=== PATIENT | female | born 1970 | race Caucasian/White ===

== ENCOUNTER 2019-11-18 13:54 | Inpatient (IN) ==
[2019-11-18] MEDS ORDERED: CeFAZolin Syr 3,000MG/30 ML 3,000 MG/30 ML SYRINGE IVPB ONE (14:14)
[2019-11-18] MEDS ORDERED: Ringers Solution, Lactated 1,000 ML IVC SCH ×2 (14:15→21:06)
[2019-11-18] MEDS ORDERED: Acetaminophen IV 1,000 MG/100 ML INFUS..BTL IVPB ONE (14:57)
[2019-11-18] MEDS ORDERED: Ondansetron 4 MG/2 ML VIAL IVP PRN ×2 (15:02→21:06)
[2019-11-18] MEDS ORDERED: *HR* Midazolam HCl 2 MG/2 ML VIAL ONE ×2 (16:53→17:17)
[2019-11-18] MEDS ORDERED: ROPIVACAINE/PF/NS 0.25% 1 EACH SYRINGE INTRAART ONE (16:54)
[2019-11-18] MEDS ORDERED: Ropivacaine/PF 0.5% 30 ML VIAL ONE (16:54)
[2019-11-18] MEDS ORDERED: *HR* FentaNYL (PF) 100 MCG/2 ML VIAL ONE (16:54)
[2019-11-18] MEDS ORDERED: Povidone-Iodine 45 ML, Sodium Chloride IRRigation 1,000 ML IR ONE (17:45)
[2019-11-18] MEDS ORDERED: *HR* Enoxaparin 30 MG/0.3 ML SYRINGE SQ SCH (18:00)
[2019-11-18] MEDS ORDERED: Vancomycin 1,000 MG VIAL ONE (18:12)
[2019-11-18] MEDS ORDERED: Ethanol\\Acetic Acid\\Na Ace\\Ben 1,000 ML IRRIG.SOLN IR ONE (18:12)
[2019-11-18] MEDS ORDERED: *HR* Propofol 200 MG/20 ML VIAL IVP ONE (18:14)
[2019-11-18] MEDS ORDERED: *HR* Succinylcholine 200 MG/10 ML VIAL IVP ONE (18:14)
[2019-11-18] MEDS ORDERED: Lidocaine HCL 4 ML Topical Solution (Laryng-O-Jet Kit Sterile Pak) TP ONE (18:15)
[2019-11-18] MEDS ORDERED: Lidocaine -MPF 2% 2 ML VIAL ONE (18:15)
[2019-11-18] MEDS ORDERED: Acetaminophen IV 1,000 MG/100 ML INFUS..BTL ONE (18:34)
[2019-11-18] MEDS ORDERED: Ondansetron 4 MG/2 ML VIAL ONE (18:35)
[2019-11-18] MEDS ORDERED: Dexamethasone 4 MG/ML VIAL ONE (18:35)
[2019-11-18] MEDS ORDERED: EPHEDrine 50 MG/ML VIAL ONE (19:03)
[2019-11-18] MEDS: *HR* FentaNYL (PF) 100 MCG/2 ML VIAL IVP PRN ×2 (19:43→20:02)
[2019-11-18] MEDS ORDERED: *HR* OxyCODONE Immed Rel 5 MG TABLET PO ONE (20:06)
[2019-11-18 20:45] LABS: Hematocrit 37.3 % (35.3-44.9); Hemoglobin 12.2 g/dL (11.5-15.4)
[2019-11-18] MEDS ORDERED: Baclofen 10 MG TABLET PO PRN (21:06)
[2019-11-18] MEDS ORDERED: Acetaminophen/Butalbital/CaffeineTABLET PO PRN (21:06)
[2019-11-18] MEDS ORDERED: *HR* OxyCODONE Immed Rel 5 MG TABLET PO PRN (21:06)
[2019-11-18] MEDS ORDERED: Ziprasidone 80 MG CAPSULE PO SCH (21:06)
[2019-11-18] MEDS ORDERED: Naloxone 0.4 MG/ML INJ IVP PRN (21:06)
[2019-11-18] MEDS ORDERED: ALPRAZolam 0.5 MG TABLET PO PRN (21:06)
[2019-11-18] MEDS ORDERED: Insulin LISPRO 300 UNITS/3 ML VIAL SQ SCH (21:06)
[2019-11-18] MEDS ORDERED: Melatonin 3 MG TABLET PO SCH (21:06)
[2019-11-18] MEDS ORDERED: CeFAZolin Syr 3,000MG/30 ML 3,000 MG/30 ML SYRINGE IVPB SCH (21:06)
[2019-11-18] MEDS ORDERED: Sennosides 8.6 MG TABLET PO PRN (21:06)
[2019-11-18] MEDS ORDERED: Dextrose Gel 15 GM/37.5 ML TUBE PO PRN ×2 (21:06)
[2019-11-18] MEDS ORDERED: Cyanocobalamin (B-12) 1,000 MCG TABLET PO SCH (21:06)
[2019-11-18] MEDS ORDERED: D5% in Water 1,000 ML IVC PRN (21:06)
[2019-11-18] MEDS ORDERED: MOM Conc 10 ML UD.LIQ PO PRN (21:06)
[2019-11-18] MEDS ORDERED: OXcarbazepine 150 MG TABLET PO SCH (21:06)
[2019-11-18] MEDS ORDERED: Ibuprofen 800 MG TABLET PO PRN (21:06)
[2019-11-18] MEDS ORDERED: *HR* Dextrose 50 % in Water (Vial) 50 ML VIAL IVP PRN (21:06)
[2019-11-18] MEDS ORDERED: Furosemide 40 MG TABLET PO PRN (21:06)
[2019-11-18] MEDS: Gabapentin 400 MG CAPSULE PO SCH (22:53)
[2019-11-18] MEDS: Cholecalciferol (D-3) 1,000 UNIT (25MCG) TABLET PO SCH (22:53)
[2019-11-18] MEDS: Insulin LISPRO 300 UNITS/3 ML VIAL SQ SCH (22:54)
[2019-11-18] MEDS: ceFAZolin 3,000 MG in 0.9 % Sodium Chloride 100 ML IVPB SCH (22:55)
[2019-11-19] MEDS: *HR* OxyCODONE/APAP 5/325 TABLET PO PRN ×2 (01:27→06:57)
[2019-11-19] MEDS: ceFAZolin 3,000 MG in 0.9 % Sodium Chloride 100 ML IVPB SCH (05:41)
[2019-11-19] MEDS ORDERED: *HR* Enoxaparin 30 MG/0.3 ML SYRINGE SQ SCH (06:00)
[2019-11-19] MEDS ORDERED: BuPROPion XL (24 HR) 150 MG TABLET PO SCH (09:00)
[2019-11-19] MEDS ORDERED: Ziprasidone 20 MG CAPSULE PO SCH (09:00)
[2019-11-19] MEDS ORDERED: OXcarbazepine 150 MG TABLET PO SCH (09:00)
[2019-11-19] MEDS ORDERED: Prenatal Vit/FA 1 EACH TABLET PO SCH (09:00)
[2019-11-19] MEDS ORDERED: hydroCHLOROthiazide 25 MG TABLET PO SCH (09:00)
[2019-11-19] MEDS: Insulin LISPRO 300 UNITS/3 ML VIAL SQ SCH ×2 (09:34→12:00)
[2019-11-19] MEDS: Cholecalciferol (D-3) 1,000 UNIT (25MCG) TABLET PO SCH (09:35)
[2019-11-19] MEDS: Gabapentin 400 MG CAPSULE PO SCH (09:35)
[2019-11-19 10:28] LABS: Hematocrit 35.2 % (35.3-44.9); Hemoglobin 11.7 g/dL (11.5-15.4)
[2019-11-19 10:34] VITALS: BP 132/77
[2019-11-19 10:51] LABS: BUN/Creatinine Ratio 18 (6-26); Blood Urea Nitrogen 14 mg/dL (6-20); Calcium 8.9 mg/dL (8.6-10.3); Carbon Dioxide 29 mEq/L (23-29); Chloride 98 mEq/L (98-107); Glucose 180 mg/dL (70-105); Osmolality,Calculated 279 (280-300); Potassium 3.8 mEq/L (3.5-5.1); Sodium 132 mEq/L (136-145); eGFR For African Americans > 60 (> 60); eGFR For Non-African Americans > 60 (> 60)
[2019-11-19] MEDS ORDERED: FLU Vac QV 20-21 (6Month+)/PF 0.5 ML SYRINGE IM ONE (11:18)
[2019-11-20] MEDS ORDERED: (Dulaglutide [Trulicity] 0.75 MG) SQ SCH (15:06)
== END 2019-11-19 12:52 | disposition home or self-care (01) | DRG 483 ==
LOC: SAMDAY 13:54 → 3NENU 21:02
PROVIDERS: ADMIT Orthopaedic Surgery; ATTEND Orthopaedic Surgery

== ENCOUNTER 2020-09-02 00:43 | Observation (INO) ==
[2020-09-02 01:25] LABS: Basophils % 0.2 %; Eosinophils # 0.2 K/mcL (0.0-0.6); Eosinophils % 3.7 %; Hematocrit 36.4 % (35.3-44.9); Hemoglobin 11.6 g/dL (11.5-15.4); Immature Granulocytes % 0.4 % (0-4); Lymphocytes # 1.4 K/mcL (0.6-4.6); Lymphocytes % 24.4 %; Mean Corpuscular HGB Conc 31.9 g/dL (31.6-35.5); Mean Corpuscular Hemoglobin 28.2 pg (28.0-33.3); Mean Corpuscular Volume 88.6 fL (83.0-100.0); Mean Platelet Volume 9.3 fL (9.4-12.4); Monocytes # 0.4 K/mcL (0.0-1.3); Neutrophils # 3.7 K/mcL (1.6-8.9); Platelet Count 199 K/mcL (140-400); Red Blood Count 4.11 M/mcL (3.82-4.97); Red Cell Distribution Width 13.3 % (11.5-14.5); Segmented Neutrophils % 64.3 %; White Blood Count 5.7 K/mcL (4.3-11.1)
[2020-09-02 01:36] LABS: Prothrombin Time 11.2 Seconds (9.4-12.1)
[2020-09-02 01:39] LABS: Activated Partial Thrombo Time 27.1 Seconds (26.0-36.0)
[2020-09-02 01:51] LABS: BUN/Creatinine Ratio 20 (6-26); Blood Urea Nitrogen 18 mg/dL (6-20); Calcium 9.1 mg/dL (8.6-10.3); Carbon Dioxide 26 mEq/L (23-29); Chloride 105 mEq/L (98-107); Glucose 98 mg/dL (70-105); Osmolality,Calculated 288 (280-300); Sodium 138 mEq/L (136-145); Troponin I < 0.03 ng/mL (< 0.04); eGFR For African Americans > 60 (> 60); eGFR For Non-African Americans > 60 (> 60)
[2020-09-02] MEDS ORDERED: Acetaminophen 325 MG TABLET PO ONE (02:24)
[2020-09-02] MEDS ORDERED: Aspirin 81 MG TAB.CHEW PO ONE (02:27)
[2020-09-02] MEDS ORDERED: Perflutren Lipid Microsphere 1.3 ML in 0.9 % Sodium Chloride 8.7 ML IVP PRN (03:35)
[2020-09-02] MEDS ORDERED: Acetaminophen 325 MG TABLET PO PRN (03:36)
[2020-09-02] MEDS ORDERED: Naloxone 0.4 MG/ML INJ IVP PRN (03:36)
[2020-09-02] MEDS ORDERED: D5% in Water 1,000 ML IVC PRN (03:40)
[2020-09-02] MEDS ORDERED: *HR* Dextrose 50 % in Water (Vial) 50 ML VIAL IVP PRN (03:40)
[2020-09-02] MEDS ORDERED: Dextrose Gel 15 GM/37.5 ML TUBE PO PRN ×2 (03:40)
[2020-09-02] MEDS ORDERED: Regadenoson 0.4 MG/5 ML SYRINGE IVP ONE (06:45)
[2020-09-02] MEDS: *HR* Heparin 5,000 UNIT/ML VIAL SQ SCH ×3 (07:07→21:23)
[2020-09-02 08:10] LABS: BUN/Creatinine Ratio 22 (6-26); Blood Urea Nitrogen 18 mg/dL (6-20); Calcium 8.7 mg/dL (8.6-10.3); Carbon Dioxide 25 mEq/L (23-29); Chloride 105 mEq/L (98-107); Chol/HDL Ratio 2.8 (0-4.9); Cholesterol 147 mg/dL (< 200); Glucose 80 mg/dL (70-105); HDL Cholesterol 52 mg/dL (40-59); LDL Cholesterol,Calculated 79 mg/dL (< 100); Magnesium 1.9 mg/dL (1.6-2.6); Osmolality,Calculated 285 (280-300); Potassium 3.7 mEq/L (3.5-5.1); Sodium 137 mEq/L (136-145); Triglycerides 79 mg/dL (< 150); eGFR For African Americans > 60 (> 60); eGFR For Non-African Americans > 60 (> 60)
[2020-09-02] MEDS: Insulin LISPRO 300 UNITS/3 ML VIAL SUBQ SCH ×2 (09:09→16:25)
[2020-09-02 09:54] LABS: Hematocrit 35.5 % (35.3-44.9); Hemoglobin 11.3 g/dL (11.5-15.4); Mean Corpuscular HGB Conc 31.8 g/dL (31.6-35.5); Mean Corpuscular Hemoglobin 28.5 pg (28.0-33.3); Mean Corpuscular Volume 89.6 fL (83.0-100.0); Platelet Count 193 K/mcL (140-400); Red Blood Count 3.96 M/mcL (3.82-4.97); Red Cell Distribution Width 13.2 % (11.5-14.5); White Blood Count 4.8 K/mcL (4.3-11.1)
[2020-09-02] MEDS: Aspirin Enteric Coated 81 MG Tablet PO SCH (11:44)
[2020-09-02] MEDS: Gabapentin 400 MG CAPSULE PO SCH ×2 (16:18→21:24)
[2020-09-02] MEDS: Cholecalciferol (D-3) 1,000 UNIT (25MCG) TABLET PO SCH (16:18)
[2020-09-02] MEDS: Baclofen 10 MG TABLET PO SCH ×2 (16:18→21:21)
[2020-09-02] MEDS: *HR* OxyCODONE Immed Rel 15 MG TABLET PO PRN (16:23)
[2020-09-02] MEDS ORDERED: Insulin LISPRO 300 UNITS/3 ML VIAL SUBQ SCH (21:00)
[2020-09-02] MEDS ORDERED: Ziprasidone 80 MG CAPSULE PO SCH (21:00)
[2020-09-02] MEDS ORDERED: OXcarbazepine 150 MG TABLET PO SCH (21:00)
[2020-09-02] MEDS ORDERED: Melatonin 3 MG TABLET PO SCH (21:00)
[2020-09-02] MEDS: DOXEPIN HCL 6 MG PO SCH (21:27)
[2020-09-03 01:52] LABS: Hematocrit 33.4 % (35.3-44.9); Hemoglobin 11.2 g/dL (11.5-15.4); Mean Corpuscular HGB Conc 33.5 g/dL (31.6-35.5); Mean Corpuscular Hemoglobin 29.4 pg (28.0-33.3); Mean Corpuscular Volume 87.7 fL (83.0-100.0); Mean Platelet Volume 9.7 fL (9.4-12.4); Platelet Count 191 K/mcL (140-400); Red Blood Count 3.81 M/mcL (3.82-4.97); Red Cell Distribution Width 13.3 % (11.5-14.5); White Blood Count 4.4 K/mcL (4.3-11.1)
[2020-09-03 02:13] LABS: BUN/Creatinine Ratio 16 (6-26); Blood Urea Nitrogen 15 mg/dL (6-20); Calcium 8.7 mg/dL (8.6-10.3); Carbon Dioxide 27 mEq/L (23-29); Chloride 106 mEq/L (98-107); Glucose 84 mg/dL (70-105); Osmolality,Calculated 288 (280-300); Potassium 3.9 mEq/L (3.5-5.1); Sodium 139 mEq/L (136-145); eGFR For African Americans > 60 (> 60); eGFR For Non-African Americans > 60 (> 60)
[2020-09-03 02:26] LABS: Thyroid Stimulating Hormone 3.056 mcIU/mL (0.340-5.600)
[2020-09-03 02:39] LABS: Folate > 22.3 ng/mL (3.0-16.0); Vitamin B12 1118 pg/mL (250-1100)
[2020-09-03] MEDS: *HR* Heparin 5,000 UNIT/ML VIAL SQ SCH (06:38)
[2020-09-03] MEDS: Insulin LISPRO 300 UNITS/3 ML VIAL SUBQ SCH ×3 (08:54→12:30)
[2020-09-03] MEDS: DOXEPIN HCL 6 MG PO SCH (08:54)
[2020-09-03] MEDS: Aspirin Enteric Coated 81 MG Tablet PO SCH (08:59)
[2020-09-03] MEDS ORDERED: Ziprasidone 20 MG CAPSULE PO SCH (09:00)
[2020-09-03] MEDS ORDERED: BuPROPion XL (24 HR) 150 MG TABLET PO SCH (09:00)
[2020-09-03] MEDS: Gabapentin 400 MG CAPSULE PO SCH (09:00)
[2020-09-03] MEDS ORDERED: OXcarbazepine 150 MG TABLET PO SCH (09:00)
[2020-09-03] MEDS ORDERED: hydroCHLOROthiazide 25 MG TABLET PO SCH (09:00)
[2020-09-03] MEDS: Baclofen 10 MG TABLET PO SCH (09:01)
[2020-09-03] MEDS: Cholecalciferol (D-3) 1,000 UNIT (25MCG) TABLET PO SCH (09:02)
[2020-09-03] MEDS: *HR* OxyCODONE Immed Rel 15 MG TABLET PO PRN (09:17)
[2020-09-03 11:07] VITALS: BP 127/85; PULSE 66; TEMP 98.3; O2SAT 97
[2020-09-03 11:07] LABS: Estimated Average Glucose 103 mg/dl; Hemoglobin A1C 5.2 %
[2020-09-07] MEDS ORDERED: Cyanocobalamin (B-12) 1,000 MCG TABLET PO SCH (15:07)
== END 2020-09-03 14:28 | disposition home or self-care (01) ==
LOC: 3ANU 00:43 → EMEROOARM 00:43 → SUATTDRO 05:51 → 3ANU 06:45
PROVIDERS: ADMIT Student in an Organized Health Care Education/Training Program; ATTEND Pharmacist

== ENCOUNTER 2021-02-18 14:56 | Inpatient (IN) ==
[2021-02-18] MEDS ORDERED: Piperacillin/Tazobactam 4.5 GM in 0.9 % Sodium Chloride Mini Bag 100 ML IVPB ONE (21:27)
[2021-02-18] MEDS ORDERED: Isovue-370 500 ML BOTTLE IVP ONE (21:29)
[2021-02-18] MEDS ORDERED: methocarbamoL 500 MG TABLET PO ONE (21:30)
[2021-02-18] MEDS ORDERED: Ketorolac 30 MG/ML VIAL IVP ONE (21:32)
[2021-02-18 21:36] LABS: Basophils % 0.1 %; Hematocrit 41.8 % (35.3-44.9); Hemoglobin 13.6 g/dL (11.5-15.4); Immature Granulocytes % 0.4 % (0-4); Lymphocytes # 0.3 K/mcL (0.6-4.6); Lymphocytes % 1.8 %; Mean Corpuscular HGB Conc 32.5 g/dL (31.6-35.5); Mean Corpuscular Hemoglobin 27.6 pg (28.0-33.3); Mean Corpuscular Volume 84.8 fL (83.0-100.0); Monocytes # 0.2 K/mcL (0.0-1.3); Monocytes % 1.4 %; Neutrophils # 13.3 K/mcL (1.6-8.9); Platelet Count 176 K/mcL (140-400); Red Blood Count 4.93 M/mcL (3.82-4.97); Red Cell Distribution Width 14.7 % (11.5-14.5); Segmented Neutrophils % 96.3 %; White Blood Count 13.8 K/mcL (4.3-11.1)
[2021-02-18 21:57] LABS: Albumin 3.8 g/dL (3.5-5.7); Albumin/Globulin Ratio 1.2 (1.1-2.2); Bilirubin,Direct 0.6 mg/dL (0.0-0.2); Bilirubin,Indirect 0.6 mg/dL (0.0-1.0); Bilirubin,Total 1.2 mg/dL (0.3-1.0); Calcium 9.1 mg/dL (8.6-10.3); Globulin 3.2 g/dL (2.4-3.5); Magnesium 1.8 mg/dL (1.6-2.6); Potassium 3.7 mEq/L (3.5-5.1)
[2021-02-18 21:59] LABS: Bilirubin,Urine Negative (Negative); Blood,Urine Moderate (Negative); Clarity,Urine Turbid (Clear); Color,Urine Yellow (Yellow); Glucose,Urine (UA) Normal (Normal); Ketones,Urine 40 mg/dL (Negative); Leukocyte Esterase,Urine Negative (Negative); Mucus,Urine Few per lpf (None-Few); Nitrite,Urine Negative (Negative); Protein,Urine >=300 mg/dL (Neg-Trace); Specific Gravity,Urine > 1.030 (1.010-1.025); Squamous Epithelial Cell,Urine Moderate per hpf (None-Few); WBC,Urine 0-3 per hpf (0-3)
[2021-02-18 22:00] LABS: VBG HCO3 24 mEq/L (21-27); VBG PCO2 38 mmHg (41-51); VBG PH 7.42 pH Units (7.32-7.42); VBG PO2 39 mmHg (25-50)
[2021-02-18] MEDS ORDERED: Vancomycin 2,000 MG/520 ML IV.SOLN IVPB ONE (22:00)
[2021-02-18 22:33] LABS: Influenza A PCR Negative (Negative); Influenza B PCR Negative (Negative); Resp. Syncytial Virus PCR Negative (Negative)
[2021-02-18 22:41] LABS: SARS-CoV-2 by PCR (In House) Negative (Negative)
[2021-02-18] MEDS ORDERED: Morphine Sulfate 2 MG/ML SYRINGE IVP ONE (23:38)
[2021-02-19] MEDS ORDERED: Ondansetron 4 MG/2 ML VIAL IVP PRN (01:40)
[2021-02-19] MEDS ORDERED: Melatonin 3 MG TABLET PO PRN (01:40)
[2021-02-19] MEDS ORDERED: Naloxone 0.4 MG/ML INJ IVP PRN (01:40)
[2021-02-19] MEDS ORDERED: 0.9 % Sodium Chloride 1,000 ML IVC SCH (01:45)
[2021-02-19] MEDS: Acetaminophen 325 MG TABLET PO PRN ×2 (04:00→20:11)
[2021-02-19] MEDS ORDERED: Isovue-370 500 ML BOTTLE IVP ONE (04:30)
[2021-02-19] MEDS ORDERED: SUMAtriptan succinate 50 MG TABLET PO ONE (05:31)
[2021-02-19] MEDS ORDERED: *HR* Enoxaparin 150 MG/ML SYRINGE SQ SCH (06:00)
[2021-02-19] MEDS: Piperacillin/Tazobactam 3.375 GM in 0.9 % Sodium Chloride Mini Bag 100 ML IVPB SCH ×2 (08:30→18:08)
[2021-02-19] MEDS ORDERED: Acetaminophen/Butalbital/CaffeineTABLET PO PRN (08:33)
[2021-02-19] MEDS ORDERED: *HR* OxyCODONE Immed Rel 15 MG TABLET PO PRN (08:33)
[2021-02-19] MEDS: BuPROPion XL (24 HR) 150 MG TABLET PO SCH (09:49)
[2021-02-19] MEDS: Ziprasidone 20 MG CAPSULE PO SCH (09:50)
[2021-02-19] MEDS: Baclofen 10 MG TABLET PO SCH ×3 (09:50→20:10)
[2021-02-19] MEDS: OXcarbazepine 150 MG TABLET PO SCH ×2 (09:59→20:10)
[2021-02-19] MEDS: Gabapentin 300 MG CAPSULE PO SCH ×3 (09:59→20:13)
[2021-02-19 11:23] LABS: Hematocrit 36.1 % (35.3-44.9); Mean Corpuscular HGB Conc 33.2 g/dL (31.6-35.5); Mean Corpuscular Hemoglobin 28.2 pg (28.0-33.3); Mean Corpuscular Volume 84.7 fL (83.0-100.0); Platelet Count 145 K/mcL (140-400); Red Blood Count 4.26 M/mcL (3.82-4.97); Red Cell Distribution Width 14.8 % (11.5-14.5); White Blood Count 11.8 K/mcL (4.3-11.1)
[2021-02-19 11:44] LABS: BUN/Creatinine Ratio 26 (6-26); Blood Urea Nitrogen 26 mg/dL (6-20); Calcium 8.6 mg/dL (8.6-10.3); Carbon Dioxide 19 mEq/L (23-29); Chloride 98 mEq/L (98-107); Glucose 103 mg/dL (70-105); Osmolality,Calculated 271 (280-300); Potassium 3.5 mEq/L (3.5-5.1); Sodium 128 mEq/L (136-145); eGFR For African Americans > 60 (> 60); eGFR For Non-African Americans 58 (> 60)
[2021-02-19] MEDS: Vancomycin 1,500 MG/265 ML IV.SOLN IVPB SCH ×2 (12:01→22:21)
[2021-02-19] MEDS: DOXEPIN HCL 6 MG PO SCH ×2 (14:09→20:09)
[2021-02-19] MEDS: Clindamycin 600 MG/50 ML 600 MG/50 ML IV.SOLN IVPB SCH (17:17)
[2021-02-19] MEDS: Melatonin 3 MG TABLET PO SCH (20:11)
[2021-02-19] MEDS: Ziprasidone 80 MG CAPSULE PO SCH (20:12)
[2021-02-20] MEDS: Clindamycin 600 MG/50 ML 600 MG/50 ML IV.SOLN IVPB SCH ×4 (00:21→22:49)
[2021-02-20] MEDS: Piperacillin/Tazobactam 3.375 GM in 0.9 % Sodium Chloride Mini Bag 100 ML IVPB SCH ×4 (00:22→22:56)
[2021-02-20] MEDS: *HR* OxyCODONE/APAP 10/325 TABLET PO PRN ×3 (01:23→17:41)
[2021-02-20] MEDS: Acetaminophen 325 MG TABLET PO PRN ×2 (05:18→20:37)
[2021-02-20] MEDS: *HR* Enoxaparin 60 MG/0.6 ML SYRINGE SQ SCH (05:19)
[2021-02-20] MEDS: Gabapentin 300 MG CAPSULE PO SCH ×3 (08:32→20:37)
[2021-02-20] MEDS: Metoprolol XL (24 HR) Succ 25 MG TAB.ER.24H PO SCH (08:33)
[2021-02-20] MEDS: OXcarbazepine 150 MG TABLET PO SCH ×2 (08:33→20:36)
[2021-02-20] MEDS: Aspirin Enteric Coated 81 MG Tablet PO SCH (08:34)
[2021-02-20] MEDS: Baclofen 10 MG TABLET PO SCH ×3 (08:35→20:40)
[2021-02-20] MEDS: Ziprasidone 20 MG CAPSULE PO SCH (08:35)
[2021-02-20] MEDS: BuPROPion XL (24 HR) 150 MG TABLET PO SCH (08:35)
[2021-02-20] MEDS: DOXEPIN HCL 6 MG PO SCH ×3 (08:36→20:41)
[2021-02-20 10:09] LABS: Hematocrit 33.3 % (35.3-44.9); Hemoglobin 11.2 g/dL (11.5-15.4); Mean Corpuscular HGB Conc 33.6 g/dL (31.6-35.5); Mean Corpuscular Hemoglobin 28.8 pg (28.0-33.3); Mean Corpuscular Volume 85.6 fL (83.0-100.0); Mean Platelet Volume 10.1 fL (9.4-12.4); Platelet Count 150 K/mcL (140-400); Red Blood Count 3.89 M/mcL (3.82-4.97); Red Cell Distribution Width 14.8 % (11.5-14.5); White Blood Count 9.8 K/mcL (4.3-11.1)
[2021-02-20 10:27] LABS: BUN/Creatinine Ratio 23 (6-26); Blood Urea Nitrogen 22 mg/dL (6-20); Calcium 8.3 mg/dL (8.6-10.3); Carbon Dioxide 23 mEq/L (23-29); Chloride 99 mEq/L (98-107); Glucose 155 mg/dL (70-105); Osmolality,Calculated 276 (280-300); Potassium 3.4 mEq/L (3.5-5.1); Sodium 130 mEq/L (136-145); eGFR For African Americans > 60 (> 60); eGFR For Non-African Americans > 60 (> 60)
[2021-02-20] MEDS: Vancomycin 1,500 MG/265 ML IV.SOLN IVPB SCH (11:39)
[2021-02-20] MEDS ORDERED: Td (TENIVAC) Vaccine 0.5 ML VIAL IM ONE (12:00)
[2021-02-20] MEDS: Furosemide 20 MG/2 ML VIAL IVP SCH ×2 (12:33→20:51)
[2021-02-20] MEDS: Melatonin 3 MG TABLET PO SCH (20:35)
[2021-02-20] MEDS: Ziprasidone 80 MG CAPSULE PO SCH (20:36)
[2021-02-21] MEDS: Vancomycin 1,500 MG/265 ML IV.SOLN IVPB SCH ×3 (00:57→23:55)
[2021-02-21] MEDS: *HR* OxyCODONE/APAP 10/325 TABLET PO PRN ×3 (01:00→17:05)
[2021-02-21] MEDS: *HR* Enoxaparin 60 MG/0.6 ML SYRINGE SQ SCH (06:01)
[2021-02-21 07:22] LABS: Hematocrit 35.3 % (35.3-44.9); Hemoglobin 11.5 g/dL (11.5-15.4); Mean Corpuscular HGB Conc 32.6 g/dL (31.6-35.5); Mean Corpuscular Hemoglobin 27.6 pg (28.0-33.3); Mean Corpuscular Volume 84.7 fL (83.0-100.0); Mean Platelet Volume 10.8 fL (9.4-12.4); Platelet Count 163 K/mcL (140-400); Red Blood Count 4.17 M/mcL (3.82-4.97); Red Cell Distribution Width 14.8 % (11.5-14.5); White Blood Count 10.4 K/mcL (4.3-11.1)
[2021-02-21 08:00] LABS: BUN/Creatinine Ratio 19 (6-26); Blood Urea Nitrogen 19 mg/dL (6-20); Calcium 8.2 mg/dL (8.6-10.3); Carbon Dioxide 22 mEq/L (23-29); Chloride 101 mEq/L (98-107); Glucose 127 mg/dL (70-105); Osmolality,Calculated 280 (280-300); Potassium 3.8 mEq/L (3.5-5.1); Sodium 133 mEq/L (136-145); eGFR For African Americans > 60 (> 60); eGFR For Non-African Americans > 60 (> 60)
[2021-02-21] MEDS: Gabapentin 300 MG CAPSULE PO SCH ×3 (09:07→21:27)
[2021-02-21] MEDS: OXcarbazepine 150 MG TABLET PO SCH ×2 (09:07→21:27)
[2021-02-21] MEDS: Aspirin Enteric Coated 81 MG Tablet PO SCH (09:08)
[2021-02-21] MEDS: BuPROPion XL (24 HR) 150 MG TABLET PO SCH (09:08)
[2021-02-21] MEDS: Baclofen 10 MG TABLET PO SCH ×3 (09:08→21:29)
[2021-02-21] MEDS: Metoprolol XL (24 HR) Succ 25 MG TAB.ER.24H PO SCH (09:09)
[2021-02-21] MEDS: Ziprasidone 20 MG CAPSULE PO SCH (09:09)
[2021-02-21] MEDS: Piperacillin/Tazobactam 3.375 GM in 0.9 % Sodium Chloride Mini Bag 100 ML IVPB SCH ×3 (09:09→23:57)
[2021-02-21] MEDS: DOXEPIN HCL 6 MG PO SCH ×3 (09:09→21:29)
[2021-02-21] MEDS: Clindamycin 600 MG/50 ML 600 MG/50 ML IV.SOLN IVPB SCH (09:10)
[2021-02-21] MEDS: Furosemide 20 MG/2 ML VIAL IVP SCH ×2 (09:10→21:26)
[2021-02-21] MEDS ORDERED: Isovue-370 500 ML BOTTLE IVP ONE (11:17)
[2021-02-21] MEDS: Melatonin 3 MG TABLET PO SCH (21:28)
[2021-02-21] MEDS: Ziprasidone 80 MG CAPSULE PO SCH (21:29)
[2021-02-22 03:58] LABS: BUN/Creatinine Ratio 22 (6-26); Blood Urea Nitrogen 19 mg/dL (6-20); Calcium 7.9 mg/dL (8.6-10.3); Carbon Dioxide 28 mEq/L (23-29); Chloride 100 mEq/L (98-107); Glucose 102 mg/dL (70-105); Osmolality,Calculated 278 (280-300); Potassium 3.2 mEq/L (3.5-5.1); Sodium 133 mEq/L (136-145); eGFR For African Americans > 60 (> 60); eGFR For Non-African Americans > 60 (> 60)
[2021-02-22] MEDS: *HR* Enoxaparin 60 MG/0.6 ML SYRINGE SQ SCH (05:08)
[2021-02-22] MEDS: *HR* OxyCODONE/APAP 10/325 TABLET PO PRN ×3 (05:14→20:26)
[2021-02-22] MEDS: Furosemide 20 MG/2 ML VIAL IVP SCH ×2 (08:18→21:52)
[2021-02-22] MEDS: Piperacillin/Tazobactam 3.375 GM in 0.9 % Sodium Chloride Mini Bag 100 ML IVPB SCH ×3 (08:18→23:57)
[2021-02-22] MEDS: Gabapentin 300 MG CAPSULE PO SCH ×3 (08:19→20:24)
[2021-02-22] MEDS: Metoprolol XL (24 HR) Succ 25 MG TAB.ER.24H PO SCH (08:19)
[2021-02-22] MEDS: OXcarbazepine 150 MG TABLET PO SCH ×2 (08:19→20:24)
[2021-02-22] MEDS: BuPROPion XL (24 HR) 150 MG TABLET PO SCH (08:19)
[2021-02-22] MEDS: Ziprasidone 20 MG CAPSULE PO SCH (08:19)
[2021-02-22] MEDS: Baclofen 10 MG TABLET PO SCH ×3 (08:20→20:27)
[2021-02-22] MEDS: DOXEPIN HCL 6 MG PO SCH (08:20)
[2021-02-22] MEDS: Aspirin Enteric Coated 81 MG Tablet PO SCH (08:20)
[2021-02-22] MEDS: Vancomycin 1,250 MG/262.5 ML IV.SOLN IVPB SCH ×2 (12:35→23:54)
[2021-02-22] MEDS: Melatonin 3 MG TABLET PO SCH (20:27)
[2021-02-22] MEDS: Ziprasidone 80 MG CAPSULE PO SCH (20:27)
[2021-02-23] MEDS: *HR* OxyCODONE/APAP 10/325 TABLET PO PRN ×4 (01:54→20:42)
[2021-02-23 03:12] LABS: Hematocrit 32.9 % (35.3-44.9); Hemoglobin 10.4 g/dL (11.5-15.4); Mean Corpuscular HGB Conc 31.6 g/dL (31.6-35.5); Mean Corpuscular Hemoglobin 27.6 pg (28.0-33.3); Mean Corpuscular Volume 87.3 fL (83.0-100.0); Platelet Count 220 K/mcL (140-400); Red Blood Count 3.77 M/mcL (3.82-4.97); Red Cell Distribution Width 14.9 % (11.5-14.5); White Blood Count 6.2 K/mcL (4.3-11.1)
[2021-02-23 03:29] LABS: BUN/Creatinine Ratio 19 (6-26); Blood Urea Nitrogen 17 mg/dL (6-20); Calcium 7.9 mg/dL (8.6-10.3); Carbon Dioxide 29 mEq/L (23-29); Chloride 99 mEq/L (98-107); Glucose 94 mg/dL (70-105); Magnesium 1.8 mg/dL (1.6-2.6); Osmolality,Calculated 281 (280-300); Potassium 3.1 mEq/L (3.5-5.1); Sodium 135 mEq/L (136-145); eGFR For African Americans > 60 (> 60); eGFR For Non-African Americans > 60 (> 60)
[2021-02-23] MEDS: *HR* Enoxaparin 60 MG/0.6 ML SYRINGE SQ SCH (05:23)
[2021-02-23] MEDS: Furosemide 20 MG/2 ML VIAL IVP SCH ×2 (08:21→20:30)
[2021-02-23] MEDS: Piperacillin/Tazobactam 3.375 GM in 0.9 % Sodium Chloride Mini Bag 100 ML IVPB SCH ×2 (08:21→15:47)
[2021-02-23] MEDS: Gabapentin 300 MG CAPSULE PO SCH ×3 (08:22→20:32)
[2021-02-23] MEDS: Aspirin Enteric Coated 81 MG Tablet PO SCH (08:23)
[2021-02-23] MEDS: OXcarbazepine 150 MG TABLET PO SCH ×2 (08:23→20:32)
[2021-02-23] MEDS: Baclofen 10 MG TABLET PO SCH ×3 (08:23→20:31)
[2021-02-23] MEDS: Ziprasidone 20 MG CAPSULE PO SCH (08:23)
[2021-02-23] MEDS: BuPROPion XL (24 HR) 150 MG TABLET PO SCH (08:23)
[2021-02-23] MEDS: Metoprolol XL (24 HR) Succ 25 MG TAB.ER.24H PO SCH (08:23)
[2021-02-23] MEDS: Vancomycin 1,250 MG/262.5 ML IV.SOLN IVPB SCH ×2 (11:45→23:55)
[2021-02-23 17:26] LABS: Estimated Average Glucose 108 mg/dl; Hemoglobin A1C 5.4 %
[2021-02-23] MEDS: Ziprasidone 80 MG CAPSULE PO SCH (20:31)
[2021-02-23] MEDS: Melatonin 3 MG TABLET PO SCH (20:32)
[2021-02-24] MEDS: Piperacillin/Tazobactam 3.375 GM in 0.9 % Sodium Chloride Mini Bag 100 ML IVPB SCH ×2 (01:29→08:39)
[2021-02-24] MEDS: *HR* OxyCODONE/APAP 10/325 TABLET PO PRN ×3 (02:59→14:26)
[2021-02-24] MEDS: *HR* Enoxaparin 60 MG/0.6 ML SYRINGE SQ SCH (05:12)
[2021-02-24 05:34] LABS: Hematocrit 33.3 % (35.3-44.9); Hemoglobin 10.5 g/dL (11.5-15.4); Mean Corpuscular HGB Conc 31.5 g/dL (31.6-35.5); Mean Corpuscular Hemoglobin 27.6 pg (28.0-33.3); Mean Corpuscular Volume 87.4 fL (83.0-100.0); Mean Platelet Volume 9.8 fL (9.4-12.4); Platelet Count 302 K/mcL (140-400); Red Blood Count 3.81 M/mcL (3.82-4.97); Red Cell Distribution Width 14.8 % (11.5-14.5); White Blood Count 5.9 K/mcL (4.3-11.1)
[2021-02-24 05:49] LABS: BUN/Creatinine Ratio 23 (6-26); Blood Urea Nitrogen 18 mg/dL (6-20); Calcium 8.1 mg/dL (8.6-10.3); Carbon Dioxide 28 mEq/L (23-29); Chloride 100 mEq/L (98-107); Glucose 102 mg/dL (70-105); Magnesium 2.1 mg/dL (1.6-2.6); Osmolality,Calculated 280 (280-300); Potassium 3.7 mEq/L (3.5-5.1); Sodium 134 mEq/L (136-145); eGFR For African Americans > 60 (> 60); eGFR For Non-African Americans > 60 (> 60)
[2021-02-24] MEDS: Acetaminophen 325 MG TABLET PO PRN (06:17)
[2021-02-24] MEDS: Aspirin Enteric Coated 81 MG Tablet PO SCH (08:35)
[2021-02-24] MEDS: Ziprasidone 20 MG CAPSULE PO SCH (08:35)
[2021-02-24] MEDS: Furosemide 20 MG/2 ML VIAL IVP SCH (08:35)
[2021-02-24] MEDS: Baclofen 10 MG TABLET PO SCH ×2 (08:36→14:25)
[2021-02-24] MEDS: Metoprolol XL (24 HR) Succ 25 MG TAB.ER.24H PO SCH (08:37)
[2021-02-24] MEDS: Gabapentin 300 MG CAPSULE PO SCH ×2 (08:37→14:25)
[2021-02-24] MEDS: OXcarbazepine 150 MG TABLET PO SCH (08:38)
[2021-02-24] MEDS: BuPROPion XL (24 HR) 150 MG TABLET PO SCH (08:38)
[2021-02-24] MEDS ORDERED: Doxycycline 100 MG CAPSULE PO SCH (09:30)
[2021-02-24 10:16] VITALS: O2SAT 93
[2021-02-24] MEDS ORDERED: Acetaminophen 325 MG TABLET PO PRN (13:18)
[2021-02-24 14:02] VITALS: BP 111/73; PULSE 78; TEMP 98.7
== END 2021-02-24 17:58 | disposition home health service (06) | DRG 872 ==
LOC: EMEROOARM 14:56 → 3ANU 14:56 → SUATTDRO 02-19 02:21 → 3ANU 02-19 02:50
PROVIDERS: ADMIT Student in an Organized Health Care Education/Training Program; ATTEND Internal Medicine

== ENCOUNTER 2021-05-26 15:41 | Inpatient (IN) ==
[2021-05-26] MEDS ORDERED: Morphine Sulfate 2 MG/ML SYRINGE IVP PRN ×2 (18:14→21:08)
[2021-05-26] MEDS ORDERED: Ondansetron 4 MG/2 ML VIAL IVP ONE (18:14)
[2021-05-26 18:30] LABS: Basophils % 0.2 %; Eosinophils # 0.8 K/mcL (0.0-0.6); Eosinophils % 7.6 %; Hematocrit 39.9 % (35.3-44.9); Hemoglobin 12.8 g/dL (11.5-15.4); Immature Granulocytes % 0.4 % (0-4); Lymphocytes # 0.7 K/mcL (0.6-4.6); Lymphocytes % 6.7 %; Mean Corpuscular HGB Conc 32.1 g/dL (31.6-35.5); Mean Corpuscular Hemoglobin 29.7 pg (28.0-33.3); Mean Corpuscular Volume 92.6 fL (83.0-100.0); Mean Platelet Volume 9.9 fL (9.4-12.4); Monocytes # 0.6 K/mcL (0.0-1.3); Monocytes % 5.4 %; Neutrophils # 8.9 K/mcL (1.6-8.9); Platelet Count 188 K/mcL (140-400); Red Blood Count 4.31 M/mcL (3.82-4.97); Red Cell Distribution Width 14.4 % (11.5-14.5); Segmented Neutrophils % 79.7 %; White Blood Count 11.1 K/mcL (4.3-11.1)
[2021-05-26 18:47] LABS: Bilirubin,Urine Negative (Negative); Blood,Urine Negative (Negative); Clarity,Urine Clear (Clear); Color,Urine Yellow (Yellow); Glucose,Urine (UA) Normal (Normal); Ketones,Urine Negative (Negative); Leukocyte Esterase,Urine Moderate (Negative); Mucus,Urine Few per lpf (None-Few); Nitrite,Urine Positive (Negative); Protein,Urine 30 mg/dL (Neg-Trace); Squamous Epithelial Cell,Urine Moderate per hpf (None-Few); Urobilinogen,Urine Normal (Normal)
[2021-05-26 18:49] LABS: Alanine Aminotransferase 15 Units/L (7-52); Albumin/Globulin Ratio 1.4 (1.1-2.2); Alkaline Phosphatase 109 Units/L (34-104); Amylase 29 Units/L (29-103); Aspartate Amino Transferase 15 Units/L (13-39); BUN/Creatinine Ratio 15 (6-26); Bilirubin,Indirect 0.4 mg/dL (0.0-1.0); Bilirubin,Total 0.4 mg/dL (0.3-1.0); Blood Urea Nitrogen 14 mg/dL (6-20); Calcium 8.9 mg/dL (8.6-10.3); Carbon Dioxide 28 mEq/L (23-29); Chloride 105 mEq/L (98-107); Globulin 2.8 g/dL (2.4-3.5); Glucose 123 mg/dL (70-105); Lipase 14 Units/L (11-82); Osmolality,Calculated 292 (280-300); Potassium 3.8 mEq/L (3.5-5.1); Sodium 140 mEq/L (136-145); Total Protein 6.8 g/dL (6.4-8.9); eGFR For African Americans > 60 (> 60); eGFR For Non-African Americans > 60 (> 60)
[2021-05-26] MEDS ORDERED: *HR* FentaNYL (PF) 100 MCG/2 ML VIAL IVP ONE (18:59)
[2021-05-26] MEDS ORDERED: Piperacillin/Tazobactam 3.375 GM in 0.9 % Sodium Chloride Mini Bag 100 ML IVPB ONE (19:42)
[2021-05-26] MEDS ORDERED: 0.9 % Sodium Chloride 1,000 ML IVC SCH (19:45)
[2021-05-26] MEDS ORDERED: *HR* HYDROmorphone (PF) 1 MG/ML SYRINGE IVP ONE (20:44)
[2021-05-26] MEDS ORDERED: *HR* OxyCODONE Immed Rel 5 MG TABLET PO PRN (21:08)
[2021-05-26] MEDS ORDERED: Ondansetron 4 MG/2 ML VIAL IVP PRN (21:08)
[2021-05-26] MEDS ORDERED: Famotidine 20 MG/2 ML VIAL IVP ONE (21:45)
[2021-05-26] MEDS ORDERED: Scopolamine Patch 1.5 MG PATCH.TD72 TD ONE (21:45)
[2021-05-26] MEDS ORDERED: Ondansetron 4 MG/2 ML VIAL ONE (21:46)
[2021-05-26] MEDS ORDERED: *HR* Propofol 200 MG/20 ML VIAL IVP ONE ×2 (21:46→22:50)
[2021-05-26] MEDS ORDERED: Lidocaine -MPF 2% 2 ML VIAL ONE (21:46)
[2021-05-26] MEDS ORDERED: *HR* FentaNYL (PF) 100 MCG/2 ML VIAL ONE (21:46)
[2021-05-26] MEDS ORDERED: *HR* Midazolam HCl 5 MG/5 ML VIAL IVP ONE (21:48)
[2021-05-26] MEDS ORDERED: Famotidine 20 MG/2 ML VIAL ONE (21:49)
[2021-05-26] MEDS ORDERED: *HR* Rocuronium Bromide 50 MG/5 ML VIAL ONE ×2 (22:17→23:22)
[2021-05-26] MEDS ORDERED: Ketamine HCL *QUVA* 50mg (1mL) SYRINGE ONE (22:19)
[2021-05-27] MEDS ORDERED: *HR* Rocuronium Bromide 50 MG/5 ML VIAL ONE (00:08)
[2021-05-27] MEDS ORDERED: *HR* Propofol 200 MG/20 ML VIAL IVP ONE (00:26)
[2021-05-27] MEDS ORDERED: Sugammadex Sodium 200 MG/2 ML VIAL IV ONE (00:35)
[2021-05-27] MEDS: *HR* FentaNYL (PF) 100 MCG/2 ML VIAL IVP PRN ×3 (01:00→01:20)
[2021-05-27] MEDS ORDERED: Ondansetron 4 MG/2 ML VIAL IVP PRN (01:33)
[2021-05-27] MEDS: *HR* OxyCODONE Immed Rel 5 MG TABLET PO PRN ×5 (02:23→20:56)
[2021-05-27] MEDS: 0.9 % Sodium Chloride 1,000 ML IVC SCH ×2 (02:24→15:53)
[2021-05-27] MEDS: Melatonin 3 MG TABLET PO SCH ×2 (03:32→20:58)
[2021-05-27] MEDS: Acetaminophen IV 1,000 MG/100 ML BAG IVPB SCH ×3 (05:22→20:57)
[2021-05-27] MEDS: BuPROPion XL (24 HR) 150 MG TABLET PO SCH (07:42)
[2021-05-27] MEDS: Baclofen 10 MG TABLET PO SCH ×3 (07:42→20:58)
[2021-05-27] MEDS: OXcarbazepine 150 MG TABLET PO SCH (07:42)
[2021-05-27] MEDS: Gabapentin 400 MG CAPSULE PO SCH ×3 (07:42→21:02)
[2021-05-27] MEDS: Piperacillin/Tazobactam 3.375 GM in 0.9 % Sodium Chloride Mini Bag 100 ML IVPB SCH ×2 (07:43→15:50)
[2021-05-27] MEDS: Ziprasidone 20 MG CAPSULE PO SCH (07:43)
[2021-05-27] MEDS: Metoprolol XL (24 HR) Succ 25 MG TAB.ER.24H PO SCH (07:43)
[2021-05-27 08:33] LABS: Basophils % 0.1 %; Hematocrit 34.4 % (35.3-44.9); Hemoglobin 11.4 g/dL (11.5-15.4); Immature Granulocytes % 0.5 % (0-4); Lymphocytes # 0.4 K/mcL (0.6-4.6); Lymphocytes % 3.2 %; Mean Corpuscular HGB Conc 33.1 g/dL (31.6-35.5); Mean Corpuscular Hemoglobin 29.9 pg (28.0-33.3); Mean Corpuscular Volume 90.3 fL (83.0-100.0); Mean Platelet Volume 10.1 fL (9.4-12.4); Monocytes # 0.5 K/mcL (0.0-1.3); Neutrophils # 10.9 K/mcL (1.6-8.9); Platelet Count 176 K/mcL (140-400); Red Blood Count 3.81 M/mcL (3.82-4.97); Red Cell Distribution Width 14.5 % (11.5-14.5); Segmented Neutrophils % 92.2 %; White Blood Count 11.9 K/mcL (4.3-11.1)
[2021-05-27] MEDS ORDERED: cephALEXin 500 MG CAPSULE PO SCH (09:00)
[2021-05-27] MEDS ORDERED: Sulfamethoxazole/Trimeth DS 1 EACH TABLET PO SCH (09:00)
[2021-05-27 09:24] LABS: BUN/Creatinine Ratio 16 (6-26); Blood Urea Nitrogen 14 mg/dL (6-20); Calcium 8.4 mg/dL (8.6-10.3); Carbon Dioxide 26 mEq/L (23-29); Chloride 106 mEq/L (98-107); Glucose 145 mg/dL (70-105); Osmolality,Calculated 285 (280-300); Potassium 4.2 mEq/L (3.5-5.1); Sodium 136 mEq/L (136-145); eGFR For African Americans > 60 (> 60); eGFR For Non-African Americans > 60 (> 60)
[2021-05-27] MEDS ORDERED: OXcarbazepine 150 MG TABLET PO SCH (21:00)
[2021-05-27] MEDS ORDERED: Ziprasidone 80 MG CAPSULE PO SCH (21:00)
[2021-05-28] MEDS: Piperacillin/Tazobactam 3.375 GM in 0.9 % Sodium Chloride Mini Bag 100 ML IVPB SCH ×2 (02:23→08:38)
[2021-05-28] MEDS: Acetaminophen IV 1,000 MG/100 ML BAG IVPB SCH ×2 (02:25→07:19)
[2021-05-28 05:46] LABS: Basophils % 0.1 %; Eosinophils # 0.3 K/mcL (0.0-0.6); Eosinophils % 4.1 %; Hematocrit 33.4 % (35.3-44.9); Hemoglobin 10.5 g/dL (11.5-15.4); Immature Granulocytes % 0.4 % (0-4); Lymphocytes # 1.2 K/mcL (0.6-4.6); Lymphocytes % 14.7 %; Mean Corpuscular HGB Conc 31.4 g/dL (31.6-35.5); Mean Corpuscular Hemoglobin 28.9 pg (28.0-33.3); Mean Platelet Volume 9.9 fL (9.4-12.4); Monocytes # 0.6 K/mcL (0.0-1.3); Monocytes % 7.7 %; Neutrophils # 5.8 K/mcL (1.6-8.9); Platelet Count 150 K/mcL (140-400); Red Blood Count 3.63 M/mcL (3.82-4.97); Red Cell Distribution Width 14.6 % (11.5-14.5); White Blood Count 7.9 K/mcL (4.3-11.1)
[2021-05-28] MEDS: *HR* OxyCODONE Immed Rel 5 MG TABLET PO PRN (06:18)
[2021-05-28 06:51] VITALS: BP 95/60; PULSE 86; TEMP 98.7; O2SAT 96
[2021-05-28] MEDS: 0.9 % Sodium Chloride 1,000 ML IVC SCH (07:19)
[2021-05-28] MEDS: Metoprolol XL (24 HR) Succ 25 MG TAB.ER.24H PO SCH (08:29)
[2021-05-28] MEDS: BuPROPion XL (24 HR) 150 MG TABLET PO SCH (08:37)
[2021-05-28] MEDS: Gabapentin 400 MG CAPSULE PO SCH (08:38)
[2021-05-28] MEDS: Baclofen 10 MG TABLET PO SCH (08:38)
[2021-05-28] MEDS: OXcarbazepine 150 MG TABLET PO SCH (08:38)
[2021-05-28] MEDS: Ziprasidone 20 MG CAPSULE PO SCH (08:38)
[2021-06-02] MEDS ORDERED: (Dulaglutide [Trulicity] 1.5 MG/0.5 ML Pen.Injctr) SQ SCH (12:00)
== END 2021-05-28 10:46 | disposition home or self-care (01) | DRG 342 ==
LOC: EMEROOARM 15:41 → 3BNU 15:41
PROVIDERS: ADMIT Surgery; ATTEND Surgery